=== PATIENT | male | born 1995 | race Caucasian/White ===

== ENCOUNTER 2017-05-16 07:24 | Emergency (ER) | payer OTHER, SELFPAY ==
[2017-05-16] MEDS ORDERED: Ketorolac Tromethamine 60 MG/2 ML VIAL ONE (10:07)
== END 2017-05-16 10:13 | disposition home or self-care (01) ==
LOC: ERS 07:24
DX: G43.909 Migraine, unspecified, not intractable, without status migrainosus (principal); I10 Essential (primary) hypertension; F41.9 Anxiety disorder, unspecified
CPT/HCPCS: 96372; J1885

== ENCOUNTER 2017-05-19 20:16 | Emergency (ER) | payer OTHER ==
[2017-05-20] MEDS ORDERED: Metoclopramide HCl 10 MG/2 ML VIAL ONE (01:37)
[2017-05-20] MEDS ORDERED: diphenhydrAMINE 50 MG/ML VIAL ONE (01:37)
[2017-05-20] MEDS ORDERED: methylPREDNISolone Sod Succ/PF 125 MG/2 ML VIAL ONE (01:37)
[2017-05-20] MEDS ORDERED: Ketorolac Tromethamine 30 MG/ML VIAL ONE (01:37)
== END 2017-05-20 03:09 | disposition home or self-care (01) ==
LOC: ERS 20:16
DX: R51 Headache (principal); F41.9 Anxiety disorder, unspecified
CPT/HCPCS: 96365; 96375; J1200; J1885; J2765; J2930